=== PATIENT | female | born 1965 | race Caucasian/White ===

== ENCOUNTER 2017-01-27 11:42 | Inpatient (IN) | payer OTHER ==
[~2017-01-27] VITALS: Ht 167.6 cm; Wt 122.5 kg
[~2017-01-27 11:42] MED LIST: ALBU2.5V13 NEB; FLEXIRIL; OMEP20CA10 PO; TRAM50TA PO
[2017-01-27] MEDS ORDERED: IV NORMAL SALINE 1000 ML BAG IV ONE (12:15)
[2017-01-27] MEDS ORDERED: KETOROLAC TROMETHAMINE 15 MG INJ IV ONE (12:15)
[2017-01-27] MEDS ORDERED: KETOROLAC TROMETHAMINE 30 MG INJ ONE (12:37)
[2017-01-27] MEDS ORDERED: MORPHINE SULFATE 4 MG/1 ML DISP.SYRIN IV ONE (12:45)
[2017-01-27] MEDS ORDERED: ONDANSETRON 4 MG/2 ML VIAL IV ONE (12:45)
[2017-01-27] MEDS ORDERED: PIPERACILLIN SODIUM/TAZOBACTAM 3.375 G in IV DEXTROSE 5% 50 ML IV ONE (12:45)
[2017-01-27] MEDS ORDERED: ONDANSETRON 4 MG/2 ML VIAL ONE (12:56)
[2017-01-27] MEDS ORDERED: MORPHINE SULFATE 10 MG/1 ML DISP.SYRIN ONE (12:56)
[2017-01-27 12:57] LABS: BASOPHILS % (AUTO) 0.3 % (0.0-2.0); EOSINOPHILS # (AUTO) 0.2 K/uL (0.0-0.7); EOSINOPHILS % (AUTO) 1.7 % (0.0-7.0); HEMATOCRIT 39.5 % (37-47); LYMPHOCYTES # (AUTO) 3.1 K/UL (0.8-4.8); LYMPHOCYTES % (AUTO) 26.6 % (20.5-51.5); MEAN CORPUSCULAR HEMOGLOBIN 28.3 UUG (27.0-31.0); MEAN CORPUSCULAR HGB CONC 33 g/dL (32.0-37.0); MEAN CORPUSCULAR VOLUME 86.3 FL (81.0-99.0); MONOCYTES # (AUTO) 0.6 K/UL (0.1-1.30); MONOCYTES % (AUTO) 5.4 % (0.0-11.0); NEUTROPHILS # (AUTO) 7.8 K/UL (1.8-8.9); RED BLOOD CELL COUNT(AUTO) 4.58 MIL/UL (4.2-5.4); WHITE BLOOD COUNT (AUTO) 11.7 K/UL (4.0-11.2)
[2017-01-27] MEDS ORDERED: PIPERACILLIN SODIUM/TAZO 3.375 GM VIAL ONE (12:57)
[2017-01-27 13:07] LABS: PLATELET COUNT (AUTO) 317 K/UL (150-450)
[2017-01-27 13:09] LABS: CREATININE 0.7 mg/dL (0.6-1.3); POTASSIUM 4.3 mmol/L (3.5-5.1)
[2017-01-27 13:15] LABS: BILIRUBIN,DIRECT 0.1 mg/dL (0.0-0.2); BILIRUBIN,TOTAL 0.3 mg/dL (0.2-1.0); TOTAL PROTEIN, SERUM 7.3 g/dL (6.4-8.2)
[2017-01-27 13:49] LABS: *BILIRUBIN,URIN NEGATIVE (NEGATIVE); *BLOOD, URINE NEGATIVE (NEGATIVE); *CLARITY,URINE CLOUDY (CLEAR); *COLOR,URINE YELLOW (YELLOW); *KETONES,URINE NEGATIVE (NEGATIVE); *PROTEIN,URINE NEGATIVE (NEGATIVE); *UROBILINOGEN,URINE 0.2 E.U./dl (NORMAL); LEUKOCYTE ESTERASE ,URINE 1+ (NEGATIVE); NITRITE, URINE NEGATIVE (NEGATIVE); PH,URINE 6.5 (5.0-8.0); UGLUCOSE NEGATIVE (NEGATIVE)
[2017-01-27 14:13] LABS: BACTERIA,URINE NONE SEEN /HPF (NONE SEEN); RBC,URINE 0-3 /HPF (0-3); SQUAMOUS EPITHELIAL CELL,UR MANY /HPF (NONE SEEN)
[2017-01-27] MEDS ORDERED: ONDANSETRON 4 MG/2 ML VIAL IV PRN (14:45)
[2017-01-27] MEDS ORDERED: HYDROMORPHONE 1 MG/1 ML DISP.SYRIN IV PRN (14:45)
[2017-01-27] MEDS ORDERED: CEFTRIAXONE 1 G in IV DEXTROSE 5% 50 ML IV SCH (14:45)
[2017-01-27] MEDS ORDERED: POTASSIUM CHLORIDE 20 MEQ in IV D5 1/2 NS 1000 ML 1,000 ML IV PRN (14:45)
[2017-01-27] MEDS ORDERED: ALBUTEROL SULFATE 2.5 MG/ 0.5 ML NEBU NEB PRN (15:15)
[2017-01-27 15:56] VITALS: BP 158/79
[2017-01-27] MEDS: HYDROMORPHONE 2 MG/1 ML DISP.SYRIN IV PRN ×2 (15:58→21:43)
[2017-01-27] MEDS: IV D5 1/2 NS 1000 ML 1,000 ML IV PRN (16:02)
[2017-01-27] MEDS ORDERED: hydrALAZINE HCL 25 MG TABLET PO PRN (16:15)
[2017-01-27] MEDS: PIPERACILLIN/TAZOBACTAM/D5W 50 ML IV SCH ×2 (16:22→21:33)
[2017-01-27 20:07] VITALS: BP 130/71
[2017-01-28] MEDS: PIPERACILLIN/TAZOBACTAM/D5W 50 ML IV SCH ×4 (03:45→23:49)
[2017-01-28 04:48] VITALS: BP 119/65
[2017-01-28] MEDS: IV D5 1/2 NS 1000 ML 1,000 ML IV PRN ×2 (06:39→22:18)
[2017-01-28 07:28] LABS: BILIRUBIN,TOTAL 0.4 mg/dL (0.2-1.0); CREATININE 0.6 mg/dL (0.6-1.3); PHOSPHOROUS 3.7 mg/dL (2.5-4.9); POTASSIUM 3.7 mmol/L (3.5-5.1); TOTAL PROTEIN, SERUM 7.1 g/dL (6.4-8.2)
[2017-01-28 07:31] LABS: THYROID STIMULATING HORMONE 2.69 mIU/mL (0.358-3.740)
[2017-01-28 07:56] LABS: BASOPHILS % (AUTO) 0.2 % (0.0-2.0); EOSINOPHILS # (AUTO) 0.1 K/uL (0.0-0.7); EOSINOPHILS % (AUTO) 0.8 % (0.0-7.0); HEMATOCRIT 35.6 % (31.2-41.9); HEMOGLOBIN 11.9 g/dL (10.9-14.3); LYMPHOCYTES # (AUTO) 2.5 K/uL (20.0-40.0); LYMPHOCYTES % (AUTO) 25.4 % (20.5-51.5); MEAN CORPUSCULAR HEMOGLOBIN 29.3 uug (24.7-32.8); MEAN CORPUSCULAR HGB CONC 34 g/dL (32.3-35.6); MEAN CORPUSCULAR VOLUME 87.4 fL (75.5-95.3); MONOCYTES # (AUTO) 0.9 K/uL (2.0-10.0); MONOCYTES % (AUTO) 9.3 % (0.0-11.0); NEUTROPHILS # (AUTO) 6.4 K/uL (1.8-8.9); NEUTROPHILS % (AUTO) 64.3 % (38.5-71.5); PLATELET COUNT (AUTO) 280 K/uL (179-408); RED BLOOD CELL COUNT(AUTO) 4.07 MIL/uL (3.63-4.92); WHITE BLOOD COUNT (AUTO) 9.9 K/uL (3.8-11.8)
[2017-01-28 08:16] VITALS: BP 114/71
[2017-01-28] MEDS: FAMOTIDINE. 20 MG/2 ML VIAL IV SCH (08:49)
[2017-01-28] MEDS ORDERED: DICY20TA11 PO (10:50)
[2017-01-28 11:00] VITALS: BP 118/50
[2017-01-28 15:20] VITALS: BP 120/55
[2017-01-28 17:50] VITALS: BP 128/55
[2017-01-28] MEDS: HYDROMORPHONE 2 MG/1 ML DISP.SYRIN IV PRN (18:03)
[2017-01-28 20:30] VITALS: BP 142/80
[2017-01-29] VITALS (9 sets, daily range): BP systolic 102–151; BP diastolic 47–78
[2017-01-29] MEDS: PIPERACILLIN/TAZOBACTAM/D5W 50 ML IV SCH ×3 (05:38→20:26)
[2017-01-29 06:18] LABS: BILIRUBIN,TOTAL 0.4 mg/dL (0.2-1.0); CREATININE 0.7 mg/dL (0.6-1.3); MAGNESIUM 1.9 mg/dL (1.8-2.4); PHOSPHOROUS 3.2 mg/dL (2.5-4.9); POTASSIUM 3.6 mmol/L (3.5-5.1); TOTAL PROTEIN, SERUM 7.1 g/dL (6.4-8.2)
[2017-01-29] MEDS: FAMOTIDINE. 20 MG/2 ML VIAL IV SCH (09:53)
[2017-01-29] MEDS: HYDROMORPHONE 2 MG/1 ML DISP.SYRIN IV PRN ×2 (10:03→20:28)
[2017-01-29] MEDS ORDERED: MIDAZOLAM HCL 2 MG/2 ML VIAL ONE (14:24)
[2017-01-29] MEDS ORDERED: FENTANYL CITRATE 250 MCG/5 ML AMPUL ONE ×2 (14:24→17:22)
[2017-01-29] MEDS ORDERED: METOCLOPRAMIDE HCL 10 MG/2 ML VIAL ONE (14:24)
[2017-01-29] MEDS ORDERED: ROCURONIUM BROMIDE 50 MG/5 ML VIAL ONE ×2 (14:25→17:58)
[2017-01-29] MEDS ORDERED: SUCCINYLCHOLINE CHLORIDE 200 MG/10 ML VIAL ONE (14:25)
[2017-01-29] MEDS ORDERED: BUPIVACAINE/EPI PF 0.25% 30 ML VIAL ONE (14:37)
[2017-01-29] MEDS ORDERED: LIDOCAINE HCL 1% 20 ML VIAL ONE (14:38)
[2017-01-29] MEDS ORDERED: PROPOFOL 200 MG/20 ML BOTTLE IV ONE (15:09)
[2017-01-29] MEDS ORDERED: ONDANSETRON 4 MG/2 ML VIAL IV ONE (15:09)
[2017-01-29] MEDS ORDERED: DEXAMETHASONE SOD PHOSPHATE 10 MG INJ IV ONE (15:09)
[2017-01-29] MEDS ORDERED: SEVOFLURANE 250 ML BOTTLE IH ONE (15:09)
[2017-01-29] MEDS ORDERED: NEOSTIGMINE METHYLSULFATE 10 MG/10 ML VIAL IV ONE (15:09)
[2017-01-29] MEDS ORDERED: GLYCOPYRROLATE 0.2 MG/ML VIAL MC ONE (15:09)
[2017-01-29] MEDS ORDERED: IV LACTATED RINGERS SOLUTION 1,000 ML BAG IV ONE (15:09)
[2017-01-29] MEDS ORDERED: ALBUTEROL SULFATE 2.5 MG/3 ML NEBU ONE ×2 (17:05→19:31)
[2017-01-29] MEDS ORDERED: IPRATROPIUM BROMIDE 0.5 MG/2.5 ML NEBU ONE (17:05)
[2017-01-29] MEDS ORDERED: IOHEXOL-240 MG , 50 ML VIAL IV ONE (17:15)
[2017-01-29] MEDS ORDERED: ONDANSETRON 4 MG/2 ML VIAL IV PRN (18:30)
[2017-01-29] MEDS ORDERED: HYDROMORPHONE 1 MG/1 ML DISP.SYRIN IV PRN (18:30)
[2017-01-29] MEDS ORDERED: KETOROLAC TROMETHAMINE 30 MG INJ ONE (19:08)
[2017-01-29] MEDS: IV D5 1/2 NS 1000 ML 1,000 ML IV PRN (20:33)
[2017-01-30] MEDS: PIPERACILLIN/TAZOBACTAM/D5W 50 ML IV SCH ×5 (00:03→23:04)
[2017-01-30] MEDS: HYDROMORPHONE 2 MG/1 ML DISP.SYRIN IV PRN ×5 (00:25→18:32)
[2017-01-30 04:00] VITALS: BP 124/72
[2017-01-30 07:01] LABS: BILIRUBIN,TOTAL 0.4 mg/dL (0.2-1.0); CREATININE 0.8 mg/dL (0.6-1.3); PHOSPHOROUS 4.4 mg/dL (2.5-4.9); POTASSIUM 4.4 mmol/L (3.5-5.1); TOTAL PROTEIN, SERUM 7.4 g/dL (6.4-8.2)
[2017-01-30 07:10] LABS: BASOPHILS # (AUTO) 0.1 K/uL (0.0-8.0); BASOPHILS % (AUTO) 0.4 % (0.0-2.0); HEMATOCRIT 35.1 % (31.2-41.9); HEMOGLOBIN 11.6 g/dL (10.9-14.3); LYMPHOCYTES # (AUTO) 1.8 K/uL (20.0-40.0); LYMPHOCYTES % (AUTO) 12.8 % (20.5-51.5); MEAN CORPUSCULAR HEMOGLOBIN 28.7 uug (24.7-32.8); MEAN CORPUSCULAR HGB CONC 33 g/dL (32.3-35.6); MEAN CORPUSCULAR VOLUME 86.6 fL (75.5-95.3); MONOCYTES # (AUTO) 0.7 K/uL (2.0-10.0); MONOCYTES % (AUTO) 5.4 % (0.0-11.0); NEUTROPHILS # (AUTO) 11.2 K/uL (1.8-8.9); NEUTROPHILS % (AUTO) 81.4 % (38.5-71.5); PLATELET COUNT (AUTO) 240 K/uL (179-408); RED BLOOD CELL COUNT(AUTO) 4.05 MIL/uL (3.63-4.92); WHITE BLOOD COUNT (AUTO) 13.7 K/uL (3.8-11.8)
[2017-01-30] MEDS: FAMOTIDINE. 20 MG/2 ML VIAL IV SCH (09:14)
[2017-01-30 12:00] VITALS: BP 136/66
[2017-01-30] MEDS: IV D5 1/2 NS 1000 ML 1,000 ML IV PRN (14:56)
[2017-01-30 15:56] VITALS: BP 101/42
[2017-01-30] MEDS ORDERED: HYDROMORPHONE 1 MG/1 ML DISP.SYRIN IV PRN (19:15)
[2017-01-30 20:00] VITALS: BP 103/64
[2017-01-31] MEDS: HYDROMORPHONE 2 MG/1 ML DISP.SYRIN IV PRN ×3 (01:54→17:25)
[2017-01-31] MEDS: IV D5 1/2 NS 1000 ML 1,000 ML IV PRN ×2 (04:25→17:42)
[2017-01-31 04:54] VITALS: BP 110/74
[2017-01-31] MEDS: PIPERACILLIN/TAZOBACTAM/D5W 50 ML IV SCH ×3 (05:08→17:05)
[2017-01-31 06:35] LABS: BILIRUBIN,TOTAL 0.4 mg/dL (0.2-1.0); CREATININE 0.9 mg/dL (0.6-1.3); MAGNESIUM 1.9 mg/dL (1.8-2.4); POTASSIUM 3.5 mmol/L (3.5-5.1); TOTAL PROTEIN, SERUM 7.1 g/dL (6.4-8.2)
[2017-01-31 07:00] VITALS: BP 117/74
[2017-01-31 07:20] LABS: BASOPHILS % (AUTO) 0.3 % (0.0-2.0); EOSINOPHILS # (AUTO) 0.1 K/uL (0.0-0.7); EOSINOPHILS % (AUTO) 0.6 % (0.0-7.0); HEMATOCRIT 35.2 % (37-47); HEMOGLOBIN 11.5 G/DL (12.0-16.0); LYMPHOCYTES # (AUTO) 2.8 K/UL (0.8-4.8); LYMPHOCYTES % (AUTO) 23.8 % (20.5-51.5); MEAN CORPUSCULAR HEMOGLOBIN 28.4 UUG (27.0-31.0); MEAN CORPUSCULAR HGB CONC 33 g/dL (32.0-37.0); MEAN CORPUSCULAR VOLUME 86.7 FL (81.0-99.0); MONOCYTES # (AUTO) 1.1 K/UL (0.1-1.30); NEUTROPHILS # (AUTO) 7.8 K/UL (1.8-8.9); NEUTROPHILS % (AUTO) 66.3 % (38.5-71.5); PLATELET COUNT (AUTO) 349 K/UL (150-450); RED BLOOD CELL COUNT(AUTO) 4.06 MIL/UL (4.2-5.4); WHITE BLOOD COUNT (AUTO) 11.8 K/UL (4.0-11.2)
[2017-01-31] MEDS: FAMOTIDINE 20 MG TABLET PO SCH (08:20)
[2017-01-31] MEDS ORDERED: BISACODYL 10 MG SUPP.RECT RC ONE (10:45)
[2017-01-31] MEDS ORDERED: MAGNESIUM HYDROXIDE 30 ML LIQUID UDC PO PRN (10:45)
[2017-01-31] MEDS ORDERED: MAGNESIUM HYDROXIDE 30 ML LIQUID UDC PO ONE (10:45)
[2017-01-31] MEDS ORDERED: BISACODYL 10 MG SUPP.RECT RC PRN (10:45)
[2017-01-31 11:00] VITALS: BP 102/65
[2017-01-31] MEDS: HYDROCODONE/APAP 5-325MG TABLET PO PRN ×2 (15:01→21:44)
[2017-01-31 15:20] VITALS: BP 111/66
[2017-01-31 20:00] VITALS: BP 117/74
[2017-01-31] MEDS: DOCUSATE SODIUM 100 MG CAPSULE PO SCH (20:12)
[2017-02-01] MEDS: PIPERACILLIN/TAZOBACTAM/D5W 50 ML IV SCH ×3 (00:20→11:35)
[2017-02-01 06:12] VITALS: BP 124/72
[2017-02-01] MEDS: DOCUSATE SODIUM 100 MG CAPSULE PO SCH (08:14)
[2017-02-01] MEDS: FAMOTIDINE 20 MG TABLET PO SCH (08:14)
[2017-02-01] MEDS: HYDROCODONE/APAP 5-325MG TABLET PO PRN (08:50)
[2017-02-01] MEDS: IV D5 1/2 NS 1000 ML 1,000 ML IV PRN (08:51)
[2017-02-01 11:30] VITALS: BP 104/70
[2017-02-01] MEDS ORDERED: CEPH500C2 PO (13:02)
[2017-02-01] MEDS ORDERED: LACT1CAP59 PO (13:02)
[2017-02-01] MEDS ORDERED: HYDR-3326 PO ×2 (13:02→13:04)
[2017-02-01] MEDS ORDERED: CEPHALEXIN MONOHYDRATE 500 MG CAPSULE PO SCH (14:00)
== END 2017-02-01 15:10 | disposition home or self-care (01) | DRG 418 ==
LOC: ER 11:46 → MED 14:55
PROVIDERS: ADMIT Internal Medicine; ATTEND Internal Medicine
PROC: 0FT44ZZ Resection of Gallbladder, Percutaneous Endoscopic Approach (ICD-10-PCS; principal; 2017-01-29 15:15)
PROC: 0FB04ZX Excision of Liver, Percutaneous Endoscopic Approach, Diagnostic (ICD-10-PCS; principal; 2017-01-29 15:15)
DX: K80.10 Calculus of gallbladder with chronic cholecystitis without obstruction (principal); N39.0 Urinary tract infection, site not specified; E44.0 Moderate protein-calorie malnutrition; K76.0 Fatty (change of) liver, not elsewhere classified; E66.01 Morbid (severe) obesity due to excess calories; E83.51 Hypocalcemia; Z68.41 Body mass index [BMI] 40.0-44.9, adult; E88.09 Other disorders of plasma-protein metabolism, not elsewhere classified; D64.9 Anemia, unspecified; E78.5 Hyperlipidemia, unspecified; I10 Essential (primary) hypertension; J45.909 Unspecified asthma, uncomplicated; K21.9 Gastro-esophageal reflux disease without esophagitis; K59.00 Constipation, unspecified; D72.829 Elevated white blood cell count, unspecified; R73.9 Hyperglycemia, unspecified; R74.0 Nonspecific elevation of levels of transaminase and lactic acid dehydrogenase [LDH]; K29.70 Gastritis, unspecified, without bleeding
CPT/HCPCS: 36415; 71010; 74000; 83690; 83735; 84100; 84443; 84703; 85025; 85610; 87086; 94664; A4663; J0330; J1100; J1170; J1885; J2250; J2270; J2405; J2543; J2710; J2765; J3010; J3480; J3490; J3590; J7030; J7120; Q9966